=== PATIENT | female | born 1950 | race Caucasian/White ===

== ENCOUNTER 2024-04-10 08:26 | Emergency (ER) | payer MEDICARE, SELFPAY ==
--- NOTE | ~2024-04-10 | XR_ITS ---
Left Knee Technique: AP, lateral, and oblique views were obtained. Clinical History: Pain Findings: No fracture or dislocation is seen. Osseous alignment is anatomic. There is mild tricompart mental degenerative spurring. Soft tissues are unremarkable. No joint effusion is seen. Impression: Mild tricompartmental degenerative spurring. Reviewed, dictated and finalized at [facility]. Impression: Mild tricompartmental degenerative spurring.
[2024-04-10 08:45] VITALS: BP 120/70; PULSE 52; RESP 15; TEMP 36.2; O2SAT 96
--- NOTE | 2024-04-10 09:00 | ED.EXTPRO ---
HPI - Extremity Problem General Chief complaint: Extremity Problem,Nontraumatic Stated complaint: lt knee pain and swelling Time Seen by Provider: 04/10/24 08:50 Source: patient and RN notes reviewed Mode of arrival: ambulatory Limitations: no limitations History of Present Illness HPI Narrative: Patient presents today complaining of left posterior knee pain and swelling x3 days, worse since yesterday. Denies numbness or tingling in the leg or foot. She currently rates her pain 4/10. She applied some topical arnica and took a dose of Tylenol last night which provided some a mild relief. Does not believe she has had knee surgeries on this knee, but cannot quite remember which knee she had a laparoscopic surgery on many years ago. Denies any current injury or trauma. Related Data Home Medications Medication Instructions Recorded Confirmed albuterol sulfate 90 mcg/actuation 2 inh inhalation PRN PRN Shortness 04/10/24 04/10/24 aerosol inhaler Of Breath Or Wheezing amiodarone 200 mg tablet 200 mg PO DAILY 04/10/24 04/10/24 amlodipine 2.5 mg tablet 2.5 mg PO DAILY 04/10/24 04/10/24 apixaban 5 mg tablet (Eliquis) 5 mg PO DAILY 04/10/24 04/10/24 budesonide 160 mcg-glycopyr 9 2 inh inhalation DAILY 04/10/24 04/10/24 mcg-formot 4.8 mcg/actuation HFA inhaler (Breztri Aerosphere) dronedarone 400 mg tablet (Multaq) 400 mg PO DAILY 04/10/24 04/10/24 empagliflozin 10 mg tablet 10 mg PO DAILY 04/10/24 04/10/24 (Jardiance) furosemide 20 mg tablet 20 mg PO DAILY 04/10/24 04/10/24 linaclotide 145 mcg capsule 145 mcg PO DAILY 04/10/24 04/10/24 (Linzess) nebivolol 5 mg tablet 5 mg PO DAILY 04/10/24 04/10/24 omeprazole 20 mg capsule,delayed 20 mg PO DAILY 04/10/24 04/10/24 release oxybutynin chloride 10 mg 10 mg PO DAILY 04/10/24 04/10/24 tablet,extended release 24 hr pantoprazole 40 mg tablet,delayed 40 mg PO DAILY 04/10/24 04/10/24 release polyethylene glycol 3350 17 17 g PO DAILY 04/10/24 04/10/24 gram/dose oral powder (Miralax) Allergies Allergy/AdvReac Type Severity Reaction Status Date / Time No Known Allergies Allergy Verified 04/10/24 08:51 Review of Systems Review of Systems: CONSTITUTIONAL: Denies body aches, fever, chills, or sweats. EYES: Denies visual changes, redness, or discharge. ENT: Denies rhinorrhea, congestion, sore throat, or otalgia. CARDIOVASCULAR: Denies chest pain, palpitations, or edema. RESPIRATORY: Denies cough or dyspnea. GASTROINTESTINAL: Denies abdominal pain, nausea, vomiting, or diarrhea. GENITOURINARY: Denies dysuria or hematuria. SKIN: Denies rash, itching, or wounds. MUSCULOSKELETAL: Denies back pain, or myalgia.+ left knee pain NEUROLOGIC: Denies headache, numbness, tingling, or weakness. PSYCH: Denies depression or anxiety. [facility] Past Medical History Medical History (Updated 04/10/24 @ 09:33 by Toya John, [facility], ) Afib CHF (congestive heart failure) COPD (chronic obstructive pulmonary disease) Comments At time of signature, I have reviewed and agree with nursing past medical, surgical, social and family history unless otherwise noted. Please see nursing chart for further information. There is no relevant family history pertinent to the presenting complaint Exam Narrative: GENERAL: Well-appearing, well-nourished, and in no acute distress. HEAD: Normocephalic, atraumatic. EYES: EOMI. No redness or drainage. Conjunctivae normal. ENT: Mucous membranes pink and moist. NECK: Normal AROM. CHEST: No respiratory distress. EXTREMITIES: Left knee: Knee is nontender. Scant edema generally about the knee. No erythema or ecchymosis noted. Audible crepitus noted with extension. Pain with full extension. No pain with internal or external rotation. Distal sensation intact. Capillary refill normal. Pedal pulse 2+. Full range of motion of the knee, ankle, and toes. No tenderness to the calf, lower leg, ankle, foot. SKIN: Warm, dry, no rash. Capillary
== END 2024-04-10 09:34 | disposition home or self-care (01) ==
PROVIDERS: Emergency Provider Nurse Practitioner; PCP Physician Assistant
DX: M77.9 Enthesopathy, unspecified (principal); I48.91 Unspecified atrial fibrillation; I50.9 Heart failure, unspecified; J44.9 Chronic obstructive pulmonary disease, unspecified
CPT/HCPCS: 73564; 99203; G0463